=== PATIENT | male | born 1965 | race Two or more races ===

== ENCOUNTER 2019-08-03 11:48 | Emergency (ER) | payer OTHER ==
[~2019-08-03] VITALS: Ht 172.7 cm; Wt 81.2 kg
[2019-08-03] MEDS ORDERED: METFORMIN HCL1000 M2 (12:05)
[2019-08-03] MEDS ORDERED: PROAIR HFA8.5 GM (12:05)
[2019-08-03] MEDS ORDERED: GLIMEPIRIDE4 MG (12:05)
== END 2019-08-03 15:32 | disposition home or self-care (01) ==
LOC: ER 11:48
DX: M54.2 Cervicalgia (principal); M62.838 Other muscle spasm

== ENCOUNTER 2019-08-06 12:20 | Emergency (ER) | payer OTHER ==
[~2019-08-06] VITALS: Ht 172.7 cm; Wt 81.2 kg
[~2019-08-06 12:20] MED LIST: GLIMEPIRIDE4 MG; METFORMIN HCL1000 M2; PROAIR HFA8.5 GM
[2019-08-06] MEDS ORDERED: ULTRAM50 MG (12:37)
== END 2019-08-06 14:20 | disposition home or self-care (01) ==
LOC: ER 12:20
DX: M54.2 Cervicalgia (principal)

== ENCOUNTER 2021-04-19 11:11 | Emergency (ER) | payer OTHER ==
[~2021-04-19] VITALS: Ht 172.7 cm; Wt 81.6 kg
[~2021-04-19 11:11] MED LIST changes: +ULTRAM50 MG
== END 2021-04-19 13:14 | disposition home or self-care (01) ==
LOC: ER 11:11
DX: H92.02 Otalgia, left ear (principal)

== ENCOUNTER 2023-02-02 13:24 | Emergency (ER) | payer OTHER ==
[~2023-02-02] VITALS: Ht 172.7 cm; Wt 81.6 kg
== END 2023-02-02 18:41 | disposition home or self-care (01) ==
LOC: ER 13:25
DX: S00.83XA Contusion of other part of head, initial encounter (principal); S60.512A Abrasion of left hand, initial encounter; S60.511A Abrasion of right hand, initial encounter; W10.8XXA Fall (on) (from) other stairs and steps, initial encounter; Y93.9 Activity, unspecified; Y92.89 Other specified places as the place of occurrence of the external cause; Y99.9 Unspecified external cause status; M25.539 Pain in unspecified wrist; E11.9 Type 2 diabetes mellitus without complications; Z79.84 Long term (current) use of oral hypoglycemic drugs; Z88.6 Allergy status to analgesic agent

== ENCOUNTER 2024-06-07 23:34 | Emergency (ER) | payer OTHER ==
[~2024-06-07] VITALS: Ht 175.3 cm; Wt 63.5 kg
[~2024-06-07 23:34] MED LIST changes: +COZAAR25 MG PO
[2024-06-08] MEDS ORDERED: TRAMADOL HCL 50 MG TABLET PO STA (02:06)
[2024-06-08] MEDS ORDERED: TRAMADOL HCL50 MG PO (02:19)
== END 2024-06-08 02:48 | disposition home or self-care (01) ==
LOC: ER 23:34
DX: K04.7 Periapical abscess without sinus (principal); Z88.6 Allergy status to analgesic agent; E11.9 Type 2 diabetes mellitus without complications; Z79.84 Long term (current) use of oral hypoglycemic drugs